=== PATIENT | female | born 1965 | race Caucasian/White ===

== ENCOUNTER → 2016-11-27 | Outpatient (CLI) | payer OTHER ==
[~2016-11-27] MED LIST: ATOR20TA9 PO; CALC-4 PO; ESTRADIOL PO; FAMO20TA7 PO; IRON PO; MULT-658 PO; OMEP-110 PO; VITAMIN B-12 SL
[2016-11-27 07:44] LABS: BLOOD UREA NITROGEN 13 mg/dL (7-18)
[2016-11-27 08:10] LABS: ASPARTATE AMINO TRANSFERASE 17 U/L (15-37); TOTAL IRON BINDING CAPACITY 407 mcg/dL (250-450); TRANSFERRIN 316 mg/dL (200-360)
[2016-11-28 11:06] LABS: IMMUNOGLOBULIN A 83 mg/dL (87-352); IMMUNOGLOBULIN G 585 mg/dL (700-1600); IMMUNOGLOBULIN M 97 mg/dL (26-217)
== END | disposition home or self-care (01) ==
LOC: LAB 07:13
PROVIDERS: ATTEND Nurse Practitioner Primary Care
DX: Z13.220 Encounter for screening for lipoid disorders (principal); E78.2 Mixed hyperlipidemia; K29.70 Gastritis, unspecified, without bleeding; E55.9 Vitamin D deficiency, unspecified; R79.9 Abnormal finding of blood chemistry, unspecified; K46.9 Unspecified abdominal hernia without obstruction or gangrene; R79.89 Other specified abnormal findings of blood chemistry; R51 Headache; R53.83 Other fatigue; R09.82 Postnasal drip; E61.1 Iron deficiency
CPT/HCPCS: 36415; 80053; 80061; 81003; 82306; 82607; 82728; 82746; 82784; 82785; 83540; 83550; 84425; 84443; 84466; 85025

== ENCOUNTER 2016-12-21 22:41 | Emergency (ER) | payer OTHER ==
[~2016-12-21] VITALS: Ht 170.2 cm; Wt 92.0 kg
[~2016-12-21 22:41] MED LIST changes: +GLYC2TAB PO; +LORA-445 PO
[2016-12-21] MEDS ORDERED: HYDROcodone/APAP 5/325 TABLET ONE ×2 (23:21→23:29)
[2016-12-21] MEDS ORDERED: ONDANSETRON ODT 4 MG ONE ×2 (23:21→23:29)
[2016-12-21] MEDS ORDERED: DIPH,PERTUSS(ACELL),TET VAC/PF 0.5 ML IM-VACC ONE ×2 (23:21→23:30)
[2016-12-21] MEDS ORDERED: LIDOCAINE 1%, 20ML ONE (23:21)
[2016-12-21] MEDS ORDERED: LIDOCAINE 1%, 20ML INFIL ONE (23:30)
[2016-12-21] MEDS ORDERED: ONDANSETRON ODT 4 MG PO ONE (23:30)
[2016-12-21] MEDS ORDERED: HYDROcodone/APAP 5/325 TABLET PO ONE (23:30)
[2016-12-21 23:49] LABS: BLOOD UREA NITROGEN 14 mg/dL (7-18)
[2016-12-22 00:31] VITALS: BP 118/68
== END 2016-12-22 00:36 | disposition home or self-care (01) ==
LOC: ED 23:59
DX: S01.81XA Laceration without foreign body of other part of head, initial encounter (principal); R55 Syncope and collapse; I10 Essential (primary) hypertension; K21.9 Gastro-esophageal reflux disease without esophagitis; Z90.49 Acquired absence of other specified parts of digestive tract; Z90.710 Acquired absence of both cervix and uterus; W19.XXXA Unspecified fall, initial encounter; Y93.89 Activity, other specified; Y92.89 Other specified places as the place of occurrence of the external cause; Y99.8 Other external cause status
CPT/HCPCS: 36415; 70450; 72125; 80048; 82040; 85025; 93005; 99285; J3490; Q0162

== ENCOUNTER 2016-12-28 10:40 | Emergency (ER) | payer OTHER ==
[~2016-12-28] VITALS: Ht 170.2 cm; Wt 92.9 kg
[2016-12-28] MEDS ORDERED: SODIUM CHLORIDE FLUSH 10ML SYR IVF ONE (11:00)
[2016-12-28] MEDS ORDERED: DIPHENHYDRAMINE 50 MG/ML, 1ML IVPush ONE (11:00)
[2016-12-28] MEDS ORDERED: METOCLOPRAMIDE 5 MG/ML, 2ML IVPush ONE (11:00)
[2016-12-28] MEDS ORDERED: SODIUM CHLORIDE 0.9% 1,000ML IVBOLUS ONE (11:00)
[2016-12-28] MEDS ORDERED: METOCLOPRAMIDE 5 MG/ML, 2ML ONE (12:09)
[2016-12-28] MEDS ORDERED: DIPHENHYDRAMINE 50 MG/ML, 1ML ONE (12:09)
[2016-12-28] MEDS ORDERED: DEXAMETHASONE 4 MG/ML, 1ML IVPush ONE (13:00)
[2016-12-28] MEDS ORDERED: DEXAMETHASONE 4 MG/ML, 5ML ONE (13:15)
[2016-12-28] MEDS ORDERED: DEXAMETHASONE 4 MG/ML, 1ML ONE (13:19)
[2016-12-28 14:50] VITALS: BP 128/68
== END 2016-12-28 14:52 | disposition home or self-care (01) ==
LOC: ED 12:13
DX: S06.0X1A Concussion with loss of consciousness of 30 minutes or less, initial encounter (principal); G44.309 Post-traumatic headache, unspecified, not intractable; I10 Essential (primary) hypertension; K21.9 Gastro-esophageal reflux disease without esophagitis; E16.2 Hypoglycemia, unspecified; Z90.49 Acquired absence of other specified parts of digestive tract; Z90.710 Acquired absence of both cervix and uterus; R11.0 Nausea; X58.XXXA Exposure to other specified factors, initial encounter; Y93.89 Activity, other specified; Y92.89 Other specified places as the place of occurrence of the external cause; Y99.9 Unspecified external cause status
CPT/HCPCS: 70450; 96361; 96374; 96375; 99284; J1100; J1200; J2765; J7030

== ENCOUNTER → 2017-01-02 | Outpatient (CLI) | payer OTHER | END | disposition home or self-care (01) | LOC: RAD 07:19 | PROVIDERS: ATTEND Nurse Practitioner Primary Care | DX: G43.909 Migraine, unspecified, not intractable, without status migrainosus (principal); R53.83 Other fatigue; E61.1 Iron deficiency; E55.9 Vitamin D deficiency, unspecified; R79.9 Abnormal finding of blood chemistry, unspecified; E78.2 Mixed hyperlipidemia; R79.89 Other specified abnormal findings of blood chemistry; K46.9 Unspecified abdominal hernia without obstruction or gangrene; R76.8 Other specified abnormal immunological findings in serum; J30.9 Allergic rhinitis, unspecified; Z91.81 History of falling | CPT/HCPCS: 70553 ==

== ENCOUNTER → 2017-01-04 | Outpatient (CLI) | payer OTHER ==
[2017-01-04 12:52] LABS: BLOOD UREA NITROGEN 15 mg/dL (7-18)
[2017-01-04 12:56] LABS: ASPARTATE AMINO TRANSFERASE 31 U/L (15-37); TOTAL IRON BINDING CAPACITY 400 mcg/dL (250-450); TRANSFERRIN 323 mg/dL (200-360)
[2017-01-05 11:06] LABS: IMMUNOGLOBULIN A 89 mg/dL (87-352); IMMUNOGLOBULIN G 909 mg/dL (700-1600); IMMUNOGLOBULIN M 131 mg/dL (26-217)
== END | disposition home or self-care (01) ==
LOC: LAB 09:27
PROVIDERS: ATTEND Nurse Practitioner Primary Care
DX: E61.1 Iron deficiency (principal); E78.2 Mixed hyperlipidemia; K46.9 Unspecified abdominal hernia without obstruction or gangrene; E55.9 Vitamin D deficiency, unspecified; R53.83 Other fatigue; R79.9 Abnormal finding of blood chemistry, unspecified; R79.89 Other specified abnormal findings of blood chemistry; R76.8 Other specified abnormal immunological findings in serum; G43.909 Migraine, unspecified, not intractable, without status migrainosus
CPT/HCPCS: 36415; 80053; 82728; 82784; 82785; 83540; 83550; 84466

== ENCOUNTER → 2017-02-20 | Outpatient (CLI) | payer OTHER ==
[2017-02-20 08:02] LABS: BLOOD UREA NITROGEN 10 mg/dL (7-18)
[2017-02-20 08:28] LABS: ASPARTATE AMINO TRANSFERASE 19 U/L (15-37); TOTAL IRON BINDING CAPACITY 391 mcg/dL (250-450); TRANSFERRIN 340 mg/dL (200-360)
[2017-02-21 11:07] LABS: IMMUNOGLOBULIN A 80 mg/dL (87-352); IMMUNOGLOBULIN G 633 mg/dL (700-1600); IMMUNOGLOBULIN M 105 mg/dL (26-217)
== END | disposition home or self-care (01) ==
LOC: LAB 07:22
PROVIDERS: ATTEND Nurse Practitioner Primary Care
DX: E78.2 Mixed hyperlipidemia (principal); E55.9 Vitamin D deficiency, unspecified; K46.9 Unspecified abdominal hernia without obstruction or gangrene; E61.1 Iron deficiency; R53.83 Other fatigue; R76.8 Other specified abnormal immunological findings in serum; G43.909 Migraine, unspecified, not intractable, without status migrainosus; R79.89 Other specified abnormal findings of blood chemistry
CPT/HCPCS: 36415; 80053; 80061; 81003; 82043; 82306; 82607; 82728; 82746; 82784; 82785; 83036; 83540; 83550; 83735; 84100; 84207; 84425; 84439; 84443; 84466; 84480; 85025

== ENCOUNTER → 2017-02-22 | Outpatient (CLI) | payer OTHER ==
[~2017-02-22] MED LIST changes: +ATOR20TA PO; +ESCI10TA10 PO; +XANAX PO
== END ==
LOC: STAR 15:38
PROVIDERS: ATTEND Internal Medicine Gastroenterology
DX: Z02.9 Encounter for administrative examinations, unspecified (principal)

== ENCOUNTER 2017-02-28 05:31 | Day surgery (SDC) | payer OTHER ==
[~2017-02-28] VITALS: Ht 170.2 cm; Wt 92.4 kg
[2017-02-28 06:13] VITALS: BP 108/74
[2017-02-28] MEDS ORDERED: LIDOCAINE 1%, 2ML ONE (06:24)
[2017-02-28] MEDS ORDERED: LACTATED RINGERS 1,000 ML IV SCH (06:33)
[2017-02-28] MEDS ORDERED: GLYC2TAB PO (06:35)
[2017-02-28] MEDS ORDERED: LIDOCAINE 1%, 2ML SQ PRN (07:00)
[2017-02-28] MEDS ORDERED: MIDAZOLAM 1 MG/ML, 2ML ONE (07:05)
[2017-02-28] MEDS ORDERED: FENTANYL PF 100 MCG/2ML ONE (07:06)
[2017-02-28] MEDS ORDERED: INDOCYANINE GREEN 25 MG VIAL ONE (07:13)
[2017-02-28] MEDS ORDERED: EPINEPHRINE SYRINGE 0.1 MG/ML, 10ML ONE (07:14)
[2017-02-28] MEDS ORDERED: PROPOFOL 10 MG/ML, 20ML ONE (07:23)
[2017-02-28] MEDS ORDERED: PROMETHAZINE 25 MG/ML, 1ML IV PRN (08:00)
[2017-02-28] MEDS ORDERED: ACETAMINOPHEN 325 MG TABLET PO PRN (08:00)
[2017-02-28] MEDS ORDERED: ONDANSETRON 2MG/ML, 2ML IVPush PRN (08:00)
[2017-02-28] MEDS ORDERED: FENTANYL PF 100 MCG/2ML IV PRN (08:00)
[2017-02-28] MEDS ORDERED: HYDROmorphone 1 MG/ML, 1ML IV PRN (08:00)
[2017-02-28] MEDS ORDERED: LABETALOL 5MG/ML, 20ML IV PRN (08:00)
[2017-02-28] MEDS ORDERED: MEPERIDINE/PF 25MG/0.5ML IVPush PRN (08:00)
[2017-02-28] MEDS ORDERED: OXYcodone 5 MG/5 ML ORAL.SOL UDC PO PRN (08:00)
== END 2017-02-28 09:30 ==
LOC: OUT 05:31
PROVIDERS: ATTEND Internal Medicine Gastroenterology
PROC: 0DJ08ZZ Inspection of Upper Intestinal Tract, Via Natural or Artificial Opening Endoscopic (ICD-10-PCS; principal; 2017-02-28 07:30)
DX: K31.89 Other diseases of stomach and duodenum (principal); K20.9 Esophagitis, unspecified; F41.9 Anxiety disorder, unspecified; F32.9 Major depressive disorder, single episode, unspecified; K21.9 Gastro-esophageal reflux disease without esophagitis; G43.909 Migraine, unspecified, not intractable, without status migrainosus; Z90.710 Acquired absence of both cervix and uterus; Z98.890 Other specified postprocedural states; Z98.84 Bariatric surgery status; Z88.5 Allergy status to narcotic agent
CPT/HCPCS: 43239; 43259; 88305; J2250; J2704; J3010; J3490; J7120

== ENCOUNTER → 2017-04-26 | Outpatient (CLI) | payer OTHER ==
[~2017-04-26] MED LIST changes: -CALC-4 PO; +DIAZ10TA PO; +[UNRECOGNIZED DRUG - CODE] PO
[2017-04-26 08:27] LABS: ASPARTATE AMINO TRANSFERASE 36 U/L (15-37); BLOOD UREA NITROGEN 14 mg/dL (7-18)
[2017-04-26 08:39] LABS: HEMATOCRIT 45.6 % (34.6-47.8); HEMOGLOBIN 15.4 g/dL (11.7-16.4); WHITE BLOOD COUNT 5.8 x10^3/uL (3.4-10)
[2017-04-26 08:55] LABS: FERRITIN 52.2 ng/mL (8-252); TOTAL IRON BINDING CAPACITY 364 mcg/dL (250-450); TRANSFERRIN 301 mg/dL (200-360)
[2017-04-27 13:06] LABS: IMMUNOGLOBULIN A 99 mg/dL (87-352); IMMUNOGLOBULIN G 1252 mg/dL (700-1600); IMMUNOGLOBULIN M 137 mg/dL (26-217)
[2017-04-29 13:07] LABS: LYME DISEASE IGG/IGM TOTAL AB <0.91 ISR (0.00-0.90); LYME DISEASE IGM <0.80 index (0.00-0.79)
== END | disposition home or self-care (01) ==
LOC: LAB 07:22
PROVIDERS: ATTEND Nurse Practitioner Primary Care
DX: E78.2 Mixed hyperlipidemia (principal); R53.83 Other fatigue; E61.1 Iron deficiency; E55.9 Vitamin D deficiency, unspecified; R79.89 Other specified abnormal findings of blood chemistry; K46.9 Unspecified abdominal hernia without obstruction or gangrene; R76.8 Other specified abnormal immunological findings in serum; G43.909 Migraine, unspecified, not intractable, without status migrainosus; Z79.899 Other long term (current) drug therapy
CPT/HCPCS: 36415; 80053; 80061; 81003; 82043; 82306; 82607; 82728; 82746; 82784; 82785; 83036; 83540; 83550; 84207; 84425; 84439; 84443; 84466; 84480; 85025; 86618; 86663; 86664; 86665

== ENCOUNTER → 2017-07-10 | Outpatient (CLI) | payer OTHER ==
[2017-07-10 07:32] LABS: ASPARTATE AMINO TRANSFERASE 22 U/L (15-37)
[2017-07-11 06:07] LABS: IMMUNOGLOBULIN A 87 mg/dL (87-352); IMMUNOGLOBULIN G 610 mg/dL (700-1600); IMMUNOGLOBULIN M 106 mg/dL (26-217)
== END | disposition home or self-care (01) ==
LOC: LAB 07:04
PROVIDERS: ATTEND Nurse Practitioner Primary Care
DX: Z13.220 Encounter for screening for lipoid disorders (principal); E78.2 Mixed hyperlipidemia; R53.83 Other fatigue; E61.1 Iron deficiency; E55.9 Vitamin D deficiency, unspecified; R76.8 Other specified abnormal immunological findings in serum; E88.81 Metabolic syndrome and other insulin resistance; G43.909 Migraine, unspecified, not intractable, without status migrainosus; R79.89 Other specified abnormal findings of blood chemistry; F51.01 Primary insomnia; Z79.899 Other long term (current) drug therapy
CPT/HCPCS: 36415; 80061; 80076; 81003; 82306; 82784; 82785; 83036

== ENCOUNTER → 2017-07-31 | Outpatient (CLI) | payer OTHER | END | disposition home or self-care (01) | LOC: RAD 15:33 | PROVIDERS: ATTEND Nurse Practitioner Primary Care | DX: M48.02 Spinal stenosis, cervical region (principal); M50.223 Other cervical disc displacement at C6-C7 level; E78.2 Mixed hyperlipidemia; K21.9 Gastro-esophageal reflux disease without esophagitis; Z79.899 Other long term (current) drug therapy | CPT/HCPCS: 72141 ==

== ENCOUNTER → 2017-08-23 | Outpatient (CLI) | payer OTHER | END | disposition home or self-care (01) | LOC: CFH 12:17 | PROVIDERS: ATTEND Obstetrics & Gynecology | DX: N64.4 Mastodynia (principal) | CPT/HCPCS: 77065 ==

== ENCOUNTER → 2017-10-08 | Outpatient (CLI) | payer OTHER ==
[2017-10-08 07:49] LABS: MICROSCOPIC NOT IND
[2017-10-08 07:53] LABS: ALANINE AMINOTRANSFERASE 23 U/L (12-78); ALBUMIN 3.3 g/dL (3.4-5.0); ANION GAP 10 mmol/L (5-15); CALCIUM 8.4 mg/dL (8.5-10.1); CHLORIDE 107 mmol/L (98-107)
[2017-10-08 07:55] LABS: BASOPHILS # (AUTO) 0.06 x10^3/uL (0-0.1); BASOPHILS % (AUTO) 1 % (0-1); EOSINOPHILS # (AUTO) 0.14 x10^3/uL (0-0.4); EOSINOPHILS % (AUTO) 1 % (1-7); LYMPHOCYTES # (AUTO) 3.94 x10^3/uL (1-3.4); LYMPHOCYTES % (AUTO) 39 % (22-44); MD NO; MEAN CORPUSCULAR HEMOGLOBIN 29.4 pg (27.0-34.8); MEAN CORPUSCULAR HGB CONC 32.9 g/dL (32.4-35.8); MEAN CORPUSCULAR VOLUME 89.2 fL (80-100); MEAN PLATELET VOLUME 7.6 fL (7.4-10.4); MONOCYTES # (AUTO) 0.62 x10^3/uL (0.2-0.8); MONOCYTES % (AUTO) 6 % (2-9); NEUTROPHILS # (AUTO) 5.31 x10^3/uL (1.8-6.8); NEUTROPHILS % (AUTO) 53 % (42-75); PLATELET COUNT 398 x10^3/uL (130-400); RED BLOOD COUNT 4.74 x10^6/uL (3.82-5.3); RED CELL DISTRIBUTION WIDTH 15.3 % (9.6-15.2)
[2017-10-08 08:00] LABS: HEMOGLOBIN A1C 5.6 % (4.2-6.3)
[2017-10-08 08:01] LABS: ALKALINE PHOSPHATASE 62 U/L (45-117); BILIRUBIN,TOTAL 0.3 mg/dL (0.2-1.0); CHOL/HDL RATIO 2.2; CHOLESTEROL, TOTAL 177 mg/dL (140-239); CREATININE 0.58 mg/dL (0.55-1.02); FREE T4 (FREE THYROXINE) 0.78 ng/dL (0.76-1.46); HDL CHOL % 45 % (28-40); HDL CHOLESTEROL (DIRECT) 80 mg/dL (40-60); LDL CHOLESTEROL,CALCULATED 74 mg/dL (54-169); LDL/HDL RATIO 0.9 (0.5-3.0); TOTAL PROTEIN 6.4 g/dL (6.4-8.2); TRIGLYCERIDES 113 mg/dL (50-200); VLDL CHOLESTEROL 23 mg/dL (0-25)
[2017-10-08 08:09] LABS: CULTURE INDICATED? NO
== END | disposition home or self-care (01) ==
LOC: LAB 07:15
PROVIDERS: ATTEND Nurse Practitioner Primary Care
DX: Z13.220 Encounter for screening for lipoid disorders (principal); R53.83 Other fatigue; E61.1 Iron deficiency; E55.9 Vitamin D deficiency, unspecified; R79.9 Abnormal finding of blood chemistry, unspecified; E78.2 Mixed hyperlipidemia; R76.8 Other specified abnormal immunological findings in serum; E88.81 Metabolic syndrome and other insulin resistance; F06.4 Anxiety disorder due to known physiological condition; M54.2 Cervicalgia; R20.2 Paresthesia of skin; K21.9 Gastro-esophageal reflux disease without esophagitis; J32.8 Other chronic sinusitis; J21.9 Acute bronchiolitis, unspecified; F51.01 Primary insomnia; G43.909 Migraine, unspecified, not intractable, without status migrainosus; Z79.899 Other long term (current) drug therapy
CPT/HCPCS: 36415; 80053; 80061; 81003; 82306; 83036; 84439; 84443; 84480; 85025

== ENCOUNTER → 2017-10-18 | Outpatient (CLI) | payer OTHER | END | disposition home or self-care (01) | LOC: LAB 09:12 | PROVIDERS: ATTEND Nurse Practitioner Primary Care | DX: Z13.220 Encounter for screening for lipoid disorders (principal); R53.83 Other fatigue; E61.1 Iron deficiency; E55.9 Vitamin D deficiency, unspecified; E78.2 Mixed hyperlipidemia; R79.89 Other specified abnormal findings of blood chemistry; R20.2 Paresthesia of skin; J32.8 Other chronic sinusitis; F51.01 Primary insomnia; R76.8 Other specified abnormal immunological findings in serum; K21.9 Gastro-esophageal reflux disease without esophagitis; F06.4 Anxiety disorder due to known physiological condition; G43.909 Migraine, unspecified, not intractable, without status migrainosus; Z79.899 Other long term (current) drug therapy | CPT/HCPCS: 36415; 80074; 86304 ==

== ENCOUNTER → 2018-04-14 | Outpatient (CLI) | payer OTHER | END | disposition home or self-care (01) | LOC: CFH 12:15 | PROVIDERS: ATTEND Nurse Practitioner Primary Care | DX: I25.10 Atherosclerotic heart disease of native coronary artery without angina pectoris (principal); E78.2 Mixed hyperlipidemia; E55.9 Vitamin D deficiency, unspecified; G43.909 Migraine, unspecified, not intractable, without status migrainosus; K21.9 Gastro-esophageal reflux disease without esophagitis; F51.01 Primary insomnia; F06.4 Anxiety disorder due to known physiological condition; Z79.899 Other long term (current) drug therapy | CPT/HCPCS: 75571 ==

== ENCOUNTER → 2018-04-18 | Outpatient (CLI) | payer OTHER | END | disposition home or self-care (01) | LOC: CFH 16:37 | PROVIDERS: ATTEND Obstetrics & Gynecology | DX: R19.00 Intra-abdominal and pelvic swelling, mass and lump, unspecified site (principal); R10.2 Pelvic and perineal pain; Z90.710 Acquired absence of both cervix and uterus; Z88.5 Allergy status to narcotic agent | CPT/HCPCS: 76856 ==

== ENCOUNTER → 2018-07-09 | Outpatient (CLI) | payer OTHER ==
[~2018-07-09] MED LIST changes: +ATOR20TA37 PO; -ATOR20TA9 PO
[2018-07-09 08:20] LABS: MICROSCOPIC NOT IND
[2018-07-09 08:24] LABS: CULTURE INDICATED? NO
[2018-07-09 08:27] LABS: CHOL/HDL RATIO 2.6; LDL/HDL RATIO 1.3 (0.5-3.0)
[2018-07-09 08:44] LABS: HEMOGLOBIN A1C 5.8 % (4.2-6.3)
== END | disposition home or self-care (01) ==
LOC: LAB 07:54
PROVIDERS: ATTEND Nurse Practitioner Primary Care
DX: Z13.220 Encounter for screening for lipoid disorders (principal); K21.9 Gastro-esophageal reflux disease without esophagitis; J32.8 Other chronic sinusitis; R20.2 Paresthesia of skin; M54.2 Cervicalgia; F06.4 Anxiety disorder due to known physiological condition; F51.01 Primary insomnia; G43.909 Migraine, unspecified, not intractable, without status migrainosus; E88.81 Metabolic syndrome and other insulin resistance; R76.8 Other specified abnormal immunological findings in serum; E78.2 Mixed hyperlipidemia; R79.9 Abnormal finding of blood chemistry, unspecified; R53.83 Other fatigue; E61.1 Iron deficiency; Z79.899 Other long term (current) drug therapy
CPT/HCPCS: 36415; 80061; 81003; 82306; 82728; 82784; 82785; 83036; 83540; 83550; 84466

== ENCOUNTER → 2018-10-17 | Outpatient (CLI) | payer OTHER ==
[2018-10-17 08:23] LABS: BASOPHILS # (AUTO) 0.04 x10^3/uL (0-0.1); BASOPHILS % (AUTO) 1 % (0-1); EOSINOPHILS % (AUTO) 1 % (1-7); LYMPHOCYTES # (AUTO) 2.98 x10^3/uL (1-3.4); LYMPHOCYTES % (AUTO) 43 % (22-44); MD NO; MEAN CORPUSCULAR HEMOGLOBIN 29.2 pg (27.0-34.8); MEAN CORPUSCULAR HGB CONC 32.9 g/dL (32.4-35.8); MEAN CORPUSCULAR VOLUME 88.9 fL (80-100); MONOCYTES # (AUTO) 0.45 x10^3/uL (0.2-0.8); MONOCYTES % (AUTO) 7 % (2-9); NEUTROPHILS # (AUTO) 3.32 x10^3/uL (1.8-6.8); NEUTROPHILS % (AUTO) 48 % (42-75); PLATELET COUNT 380 x10^3/uL (130-400); RED BLOOD COUNT 4.77 x10^6/uL (3.82-5.3); RED CELL DISTRIBUTION WIDTH 14.5 % (9.6-15.2)
[2018-10-17 08:25] LABS: ALBUMIN 3.5 g/dL (3.4-5.0); ANION GAP 8 mmol/L (5-15); CALCIUM 8.5 mg/dL (8.5-10.1); CHLORIDE 111 mmol/L (98-107); CHOLESTEROL, TOTAL 174 mg/dL (140-239); HIGH-SENSITIVITY CRP 0.13 mg/dL (0.02-0.30)
[2018-10-17 08:49] LABS: MICROSCOPIC NOT IND
[2018-10-17 08:51] LABS: ALANINE AMINOTRANSFERASE 41 U/L (12-78); ALKALINE PHOSPHATASE 73 U/L (45-117); BILIRUBIN,TOTAL 0.5 mg/dL (0.2-1.0); CHOL/HDL RATIO 2.6; CREATININE 0.68 mg/dL (0.55-1.02); FOLATE LEVEL 16.4 ng/mL (3.1-17.5); FREE T4 (FREE THYROXINE) 0.86 ng/dL (0.76-1.46); HDL CHOL % 39 % (28-40); HDL CHOLESTEROL (DIRECT) 68 mg/dL (40-60); LDL CHOLESTEROL,CALCULATED 77 mg/dL (54-169); LDL/HDL RATIO 1.1 (0.5-3.0); THYROID STIMULATING HORMONE 0.908 mIU/L (0.358-3.740); TOTAL PROTEIN 6.5 g/dL (6.4-8.2); TRIGLYCERIDES 146 mg/dL (50-200); VLDL CHOLESTEROL 29 mg/dL (0-25)
[2018-10-17 08:58] LABS: HEMOGLOBIN A1C 6.2 % (4.2-6.3)
[2018-10-17 09:04] LABS: CULTURE INDICATED? NO
== END | disposition home or self-care (01) ==
LOC: LAB 07:34
PROVIDERS: ATTEND Nurse Practitioner Primary Care
DX: E78.2 Mixed hyperlipidemia (principal); K21.9 Gastro-esophageal reflux disease without esophagitis; Z79.899 Other long term (current) drug therapy
CPT/HCPCS: 36415; 80053; 80061; 81003; 82306; 82607; 82746; 82784; 82785; 83036; 84207; 84425; 84439; 84443; 84481; 85025; 86141